=== PATIENT | female | born 1975 | race Caucasian/White ===

== ENCOUNTER 2016-07-03 19:45 | Inpatient (IN) ==
[2016-07-03] MEDS ORDERED: MORPHINE 2 MG/1 ML SYRINGE IV STA (20:20)
[2016-07-03] MEDS ORDERED: ONDANSETRON 4 MG/2 ML VIAL IV STA (20:20)
[2016-07-03] MEDS ORDERED: ONDANSETRON 4 MG/2 ML VIAL ONE (20:29)
[2016-07-03] MEDS ORDERED: MORPHINE 2 MG/1 ML SYRINGE ONE (20:30)
--- NOTE | 2016-07-03 20:55 | XRay Report ---
XR ankle 2V LT Indication: Fall with pain. Left ankle 2 views: Oblique fracture of the distal tibia is present approximately 10 cm proximal of the ankle joint. In the 2 images obtained, the fibula appears grossly intact. Impression: Oblique fracture of the distal tibia. PROCEDURE INTERPRETED AT [facility] DEPARTMENT OF RADIOLOGY Final Report Signed by: Gaurav Delgadillo M.D.
[2016-07-03] MEDS ORDERED: BISACODYL 5 MG TABLET PO PRN (20:59)
[2016-07-03] MEDS ORDERED: traZODone 50 MG TABLET PO PRN (20:59)
[2016-07-03] MEDS ORDERED: MAGNESIUM HYDROXIDE SUSP 30 ML UDCUP PO PRN (20:59)
--- NOTE | 2016-07-03 21:00 | Emergency Department Note ---
Natalee Rivera Sierra, am scribing for, and in the presence of, Zohaib Benton MD 20:25. Chetan Rivera Robert M, MD, personally performed the services described in this documentation, ascribed by Stephanie Albright in my presence, and it is both accurate and complete . Arrival - Arrival Chief Complaint: Extremity Injury Stated Complaint: broken leg ED Nursing Triage Note: C/O Left lower ext injury s/p stepping out of the vehicle, slid and heard her leg pop. Mode of Arrival: Wheelchair Limitations: No Limitations Source: Patient, Significant other Time Seen by Provider: 07/03/16 20:19 - History of Present Illness HPI Narrative: Pt is a 41 y/o female that came to the ED for further evaluation of left ankle injury s/p stepping out of a truck and sliding down an embankment that happened about an hour ago. Pt states she heard her ankle pop. She is able to move her toes. Pt states she last ate at lunch. No other complaints/pain in ED. Onset (ago): hour(s) Consistency: constant Quality: sharp Date of Last Menstrual Period: Hysterectomy Allergies/Adverse Reactions: Allergies Allergy/AdvReac Type Severity Reaction Status Date / Time meperidine [From Demerol] Allergy Severe SHORTNESS Verified 04/04/15 15:33 OF BREATH nalbuphine [From Nubain] Allergy Severe Vomiting Verified 04/04/15 15:33 Review of System - Review of System 12 point system: reviewed and no additional remarkable complaints except as stated - Review of System Cardiovascular: Absent: chest pain Gastrointestinal: Absent: abdominal pain Musculoskeletal: Present: leg pain (left ankle injury s/p fall). Absent: arm pain, back pain, neck pain Skin: Absent: rash Neurological: Absent: headache Psychiatric: Absent: anxiety Medical,Surgical,& Family Hx - Medical History Neurology: History of: Migraine - Social History Smoking Status: Never smoker Frequency of Alcohol Use: None Type of Drug Use: None Exam Vital Signs: Vital Signs Temperature 98.4 F 07/03/16 19:54 Pulse Rate 97 H 07/03/16 19:54 Respiratory Rate 18 07/03/16 19:54 O2 Sat by Pulse Oximetry 100 07/03/16 19:54 - General General appearance: alert, in no apparent distress - Head Head exam: Present: atraumatic, normocephalic - Eye Eye exam: Present: PERRL, EOMI - ENT ENT exam: Present: mucous membranes moist. Absent: mucous membranes dry - Neck Neck exam: Present: full ROM. Absent: tenderness - Chest Chest inspection: Present: symmetric chest wall rise. Absent: tenderness - Respiratory Respiratory exam: Present: normal lung sounds bilaterally. Absent: respiratory distress - Cardiovascular Cardiovascular exam: Present: regular rate, normal rhythm, normal heart sounds - Abdominal Exam Abdominal exam: Present: soft. Absent: tenderness - Extremities Exam Extremities exam: Present: full ROM, other (swelling proximal to left ankle but neurovascular intact and pulse is +2 and equal) - Back Exam Back exam: Present: full ROM. Absent: tenderness - Neurological Exam Neurological exam: Present: alert, oriented X3, CN II-XII intact. Absent: motor sensory deficit - Psychiatric Psychiatric exam: Present: normal affect, normal mood - Skin Skin exam: Present: warm, dry Course - Consultations Consultation #1: Dr. Meek requested I admit the patient he will repair in the morning. He also requests posterior splint. Time: 20:59 Results - Diagnostic Findings Procedure: X-ray: image reviewed by me (spiral fracture distal third tibia with slight displacement) Disposition Clinical Impression: Displaced spiral fracture of shaft of left tibia Case discussed with: patient, patient's family Disposition: Still a Patient Condition: Stable Time of Disposition: 20:59
[2016-07-03] MEDS ORDERED: HYDROmorphone 2 MG/1 ML VIAL IV STA (21:09)
[2016-07-03 21:10] LABS: Basophils # 0.1 10*3/uL (0.0-0.2); Basophils % 0.6 % (0.0-0.8); Eosinophils # 0.2 10*3/uL (0.0-0.87); Hematocrit 38.9 VOL% (35.7-47.0); Hemoglobin 12.7 GM/DL (12.0-16.0); Immature Granulocytes % 0.3 %; Immature Granulocytes Absolute 0.03 #; Lymphocytes # 3.4 10*3/uL (1.4-4.0); Lymphocytes % 34.1 % (21.3-54.2); Mean Corpuscular HGB Conc 32.6 GM/DL (32-36); Mean Corpuscular Hemoglobin 29 PG (27-34); Monocytes # 0.5 10*3/uL (0.11-0.8); Monocytes % 5.1 % (1.7-12.7); Neutrophils # 5.7 10*3/uL (1.4-7.4); Neutrophils % 57.9 % (38.7-73.9); Platelet Count 209 T/CUMM (130-400); Red Blood Count 4.32 MC/CUMM (3.8-5.5); Red Cell Distribution Width 13.8 % (9.3-17.3); White Blood Count 9.8 T/CUMM (4-12)
[2016-07-03] MEDS ORDERED: HYDROmorphone 2 MG/1 ML VIAL ONE ×2 (21:10→21:47)
[2016-07-03 21:23] LABS: Alanine Aminotransferase 27 U/L (13-56); Albumin 4.6 G/DL (3.4-5.0); Alkaline Phosphatase 67 U/L (45-117); Aspartate Amino Transferase 22 U/L (0-37); Bilirubin,Total < 0.39 MG/DL (0.2-1.0); Blood Urea Nitrogen 16 MG/DL (7-18); Calcium 9.3 MG/DL (8.5-10.1); Glucose 87 MG/DL (74-106); Osmolality,Calculated 289.6 MOS/KG (273-304); Sodium 146 MMOL/L (136-145); Total Protein 7.7 G/DL (6.4-8.3)
[2016-07-03] MEDS ORDERED: HYDROmorphone 2 MG/1 ML VIAL IV ONE (21:49)
[2016-07-03] MEDS ORDERED: KETOROLAC 30 MG/1 ML VIAL ONE (22:25)
[2016-07-03] MEDS ORDERED: KETOROLAC 30 MG/1 ML VIAL IV ONE (22:27)
[2016-07-03] MEDS: SODIUM CHLORIDE 0.9% 1,000 ML IV SCH (23:06)
[2016-07-04 00:38] LABS: Amorphous Crystals,Urine Occasional /HPF (Few); Apearance,Urine CLOUDY (Clear); Bacteria,Urine Moderate /HPF (Few); Bilirubin,Urine Negative (Negative); Blood, Urine Negative (Negative); Glucose,Urine (UA) Negative (Negative); Ketones,Urine Negative (Negative); Mucus,Urine Occasional /LPF (Occasional); Nitrite,Urine Negative (Negative); Protein,Urine Negative; Squamous Epithelial Cell,Urine Moderate /HPF (0-10); Urine Color Yellow (Yellow); Urine Urobilinogen < 2.0 EU/DL (0.2-1.0)
[2016-07-04] MEDS: HYDROmorphone 2 MG/1 ML VIAL IV PRN ×5 (00:42→14:51)
[2016-07-04] MEDS: ONDANSETRON 4 MG/2 ML VIAL IV PRN ×2 (01:01→08:09)
[2016-07-04] MEDS ORDERED: ACETAMINOPHEN 500 MG TABLET PO ONE (08:03)
--- NOTE | 2016-07-04 08:20 | Orthopedic History & Physical ---
Assessment and Plan (1) Displaced spiral fracture of shaft of left tibia Status: Acute Assessment and plan: Discussed the injury with the patient in detail. I recommended intramedullary nailing for stabilization of the fracture. Questions were answered her satisfaction. She desires to proceed. Risks, alternatives, and benefits to undergoing this procedure were discussed in great detail, the patient voiced understanding desire proceed. Risks discussed included, but were not limited to, bleeding, infection, damage to arteries and nerves, nonunion, malunion, need for revision surgery, as well as medical complications. We'll get her on the schedule for today. Current Visit: Yes Qualifiers: Encounter type: initial encounter Fracture type: closed Qualified Code(s) : S82.242A - Displaced spiral fracture of shaft of left tibia, initial encounter for closed fracture History of Present Illness Chief complaint: left leg fracture History of present illness: Ms. Preston is a 41 year old female who had a fall down an embankment last night. She felt a pop in the leg, she had immediate pain. She was transported here to the emergency department where radiographic workup was pertinent for a tibia fracture. She was splinted and admitted for further care. She'll complains of pain in the left leg. Home Medications Medication Instructions Recorded Confirmed Type Amitriptyline HCl 100 mg PO BEDTIME 07/03/16 07/03/16 History Gabapentin Cap/Tab [Neurontin 300 mg PO BEDTIME 07/03/16 07/03/16 History Cap/Tab] Topiramate [Topamax] 100 mg PO QAM 07/03/16 07/03/16 History Topiramate [Topamax] 200 mg PO BEDTIME 07/03/16 07/03/16 History B12/Levomefolate Calcium/B-6 1 tablet PO DAILY 07/04/16 07/04/16 History [Foltx Tablet] Estropipate [Ogen] 1.5 mg PO DAILY 07/04/16 07/04/16 History Melatonin/Pyridoxine HCl (B6) 1 tablet PO BEDTIME PRN 07/04/16 07/04/16 History [Melatonin 5 mg Tablet] Allergies Allergy/AdvReac Type Severity Reaction Status Date / Time meperidine [From Demerol] Allergy Severe SHORTNESS Verified 07/03/16 23:09 OF BREATH nalbuphine [From Nubain] Allergy Severe Vomiting Verified 07/03/16 23:09 12 point system: reviewed and no additional remarkable complaints except as stated Medical,Surgical,& Family Hx - Medical History Neurology: History of: Migraine - Surgical History Reproductive Surgeries: Surgical HX of;: Gynecologic Surgery, Hysterectomy - Social History Smoking Status: Never smoker Frequency of Alcohol Use: None Type of Drug Use: None Exam - Constitutional Vitals: Period Temp Pulse Resp BP Sys/Turner Pulse Ox Last 24 Hr 97.6 F-98.3 F 83-100 18-20 93-132/60-93 98-99 Exam: General appearance: no acute distress Head exam: normal inspection Eye exam: EOMI Neck exam: normal inspection Respiratory exam: clear to auscultation bilaterally Cardiovascular exam: regular GI/Abdominal exam: normal bowel sounds Left lower extremity: Posterior splint is in place. She can wiggle her toes. She is sensate in her toes. She has is capillary refill. She is nontender in the knee. Results - Labs CBC & BMP: 07/03/16 20:26 07/03/16 20:26 - Diagnostic Findings Procedure: X-ray: image reviewed by me (The left ankle show a displaced spiral fracture of the tibial shaft. Visualized fibula is intact)
[2016-07-04] MEDS: SODIUM CHLORIDE 0.9% 1,000 ML IV SCH ×3 (10:04→23:42)
[2016-07-04] MEDS: GABAPENTIN 400 MG CAPSULE PO SCH (10:06)
[2016-07-04] MEDS ORDERED: MIDAZOLAM 2 MG/2 ML VIAL ONE ×2 (11:37→14:11)
[2016-07-04] MEDS ORDERED: fentaNYL 100 MCG/2 ML VIAL ONE ×2 (11:38→14:11)
[2016-07-04] MEDS ORDERED: ROPIVACAINE 0.5% 30 ML VIAL ONE (11:38)
[2016-07-04] MEDS ORDERED: DEXAMETHASONE 10 MG/1 ML VIAL ONE (12:14)
[2016-07-04] MEDS ORDERED: LIDOCAINE 1% 5 ML VIAL ONE (12:14)
[2016-07-04] MEDS ORDERED: ONDANSETRON 4 MG/2 ML VIAL ONE ×2 (12:14→14:28)
[2016-07-04] MEDS ORDERED: SCOPOLAMINE 1.5 MG PATCH TRANSDERM ONE ×2 (12:14→14:11)
[2016-07-04] MEDS ORDERED: PROMETHAZINE 25 MG/1 ML VIAL ONE (12:14)
[2016-07-04] MEDS ORDERED: ROCURONIUM 100 MG/10 ML VIAL IV ONE (12:14)
[2016-07-04] MEDS ORDERED: PROPOFOL 200 MG/20 ML VIAL IV ONE (12:14)
[2016-07-04] MEDS ORDERED: ACETAMINOPHEN 325 MG TABLET PO PRN (13:38)
[2016-07-04] MEDS ORDERED: MELATONIN 3 MG TABLET PO PRN (13:40)
[2016-07-04] MEDS ORDERED: HYDROmorphone PCA 30 MG/30 ML SYRINGE IV SCH (14:00)
[2016-07-04] MEDS ORDERED: LACTATED RINGERS 1,000 ML IV ONE (14:11)
[2016-07-04] MEDS ORDERED: SEVOFLURANE 1 UNIT/15 MINUTE INH ONE (14:11)
--- NOTE | 2016-07-04 14:13 | XRay Report ---
Referring Physician: Ismael Meek Exam: XR tibia fibula LT AP and lateral views Date: July 04, 2016 at 1:39 PM Reason: Postop internal fixation of left tibia Comparison: Left ankle x-rays July 03, 2016 Findings: There has been internal fixation of the recently seen oblique fracture of the distal left tibia, utilizing an intramedullary vahid and surgical screws. Position and alignment appear satisfactory. There is also a mildly displaced, oblique fracture of the proximal diaphysis of the left fibula. Surgical skin kriss are seen near the left knee and left ankle. Impression: 1. The patient is status post internal fixation of the recently seen fracture of the distal left tibia. Position and alignment appear satisfactory. 2. Mildly displaced, oblique fracture of the proximal diaphysis of the left fibula. PROCEDURE INTERPRETED AT [facility] DEPARTMENT OF RADIOLOGY Final Report Signed by: Dr. Dex Dolan
[2016-07-04] MEDS ORDERED: HYDROmorphone PCA 30 MG/30 ML SYRINGE IV ONE (14:16)
[2016-07-04] MEDS ORDERED: HYDROmorphone 2 MG/1 ML VIAL ONE (14:28)
[2016-07-04] MEDS ORDERED: ONDANSETRON 4 MG/2 ML VIAL IV PRN (14:38)
[2016-07-04] MEDS ORDERED: LACTATED RINGERS 1,000 ML IV SCH (15:00)
--- NOTE | 2016-07-04 15:00 | XRay Report ---
XR tibia fibula LT Indication: Intramedullary nail left tibia Comparison: Left ankle x-ray dated July 03, 2016 Technique: 4 intraoperative fluoroscopic views of the left tib-fib including AP and lateral projections. Fluoroscopy time 39 seconds. Findings: Images submitted during placement of tibial intramedullary vahid with proximal and distal interlocking screws. There is an opacity within soft tissues of the infrapatellar region . This is of uncertain etiology and could be related to bone, bone graft material, or foreign body . Recommend clinical correlation. IMPRESSION: As above. PROCEDURE INTERPRETED AT [facility] DEPARTMENT OF RADIOLOGY Final Report Signed by: Dr Manuel Looney
[2016-07-04] MEDS: ACETAMINOPHEN 500 MG TABLET PO SCH (20:57)
[2016-07-04] MEDS ORDERED: TOPIRAMATE 100 MG TABLET PO SCH (21:00)
[2016-07-04] MEDS ORDERED: GABAPENTIN 300 MG CAPSULE PO SCH (21:00)
[2016-07-04] MEDS ORDERED: AMITRIPTYLINE 100 MG TABLET PO SCH (21:00)
[2016-07-05] MEDS: ACETAMINOPHEN 500 MG TABLET PO SCH ×2 (03:53→09:38)
[2016-07-05] MEDS ORDERED: ENOXAPARIN 40 MG/0.4 ML SYRINGE SUBCUT SCH (08:00)
--- NOTE | 2016-07-05 08:17 | Anesthesia ---
Anesthesia Post OP - Post Ansesthetic Evaluation Patient seen in post op: Yes Resp: within normal limits CV: within normal limits Mental: within normal limits Temp: within normal limits [id number]: within normal limits Nausea and Vomiting: within normal limits Pain: within normal limits
[2016-07-05] MEDS ORDERED: ESTROPIPATE 1.5 MG TABLET PO SCH (09:00)
[2016-07-05] MEDS ORDERED: TOPIRAMATE 100 MG TABLET PO SCH (09:00)
[2016-07-05] MEDS ORDERED: MULTIVITAMIN (BEROCCA) TABLET PO SCH (09:00)
[2016-07-05] MEDS: GABAPENTIN 400 MG CAPSULE PO SCH (09:22)
--- NOTE | 2016-07-05 13:55 | Discharge Summary ---
Hospital Course - Hospital Course Hospital Course: 41-year-old female admitted with a left tibia fracture. She underwent intramedullary nailing of the tibia without difficulty. Transferred to the floor stable condition postoperatively. She received routine antibiotics and thromboprophylaxis. She was sent by physical therapy and did well with toe- touch pain with weightbearing status and was S1 discharge home. Time of discharge her wounds clean and dry she is neurovascular intact. Diagnosis - Discharge Diagnosis (1) Displaced spiral fracture of shaft of left tibia Status: Acute Specialty Discharge - Follow Up or Referrals Discharge Plan - Discharge Data Disposition: Disch To Home/Self Care Condition at Discharge: Stable Discharge Diet: advance to your usual diet Activity: ambulate only with your walker Hygiene: may shower Weight Bearing at Discharge: toe touch Driving: not until seen by doctor Contact your physician if you experience:: fever over 101, Difficulty voiding, Redness or swelling, Nausea/Vomiting, Shortness of breath, Bleeding, pain uncontrolled by pain medications Wound / Dressing Care Instructions: Daily dressing change. Okay to shower in 48 hours - Discharge Medications New HYDROcodone/ACETAMIN 7.5-325 [[place] 7.5-325] 1 - 2 tablet PO Q4H PRN #60 tablet PRN Reason: Pain Moderate (4-7) Continue Topiramate [Topamax] 100 mg PO QAM Estropipate [Ogen] 1.5 mg PO DAILY Amitriptyline HCl 100 mg PO BEDTIME Melatonin/Pyridoxine HCl (B6) [Melatonin 5 mg Tablet] 1 tablet PO BEDTIME PRN PRN Reason: Insomnia B12/Levomefolate Calcium/B-6 [Foltx Tablet] 1 tablet PO DAILY Topiramate [Topamax] 200 mg PO BEDTIME Gabapentin Cap/Tab [Neurontin Cap/Tab] 300 mg PO BEDTIME - Follow Up or Referral Follow Up: Ismael Meek MD [Physician] - 2 Weeks - Forms/Instructions Instructions: Leg Fracture (DC) Additional Discharge Instructions: elevate and ice LLE Exam - Constitutional Vitals: Period Temp Pulse Resp BP Sys/Turner Pulse Ox Last 24 Hr 97.4 F-98.5 F 81-94 14-21 94-125/52-89 88-100 DS: Provider Date of admission: 07/03/16 21:00 Primary care physician: . No PCP Attending physician on admission: Ismael Meek MD Consults: 07/04/16 13:38 Consult to Physical Therapy [CONS] Routine Reason for Physical Therapy: Evaluate and Treat Start Therapy: Tomorrow Consult Comment: [email or web address] lle 07/04/16 13:47 Consult to Pharmacy [CONS] Routine Reason for Pharmacy Consult: Adjust Meds Renal Funct 07/05/16 08:34 Consult to Physician [CONS] Routine Comment: Consulting Provider: Carter Tariq Consulting Provider Notified: Yes When should Consulting Provider be notified: Now Person Notified: kaye kahn Date Notified: 07/05/16 Time Notified: 08:42 Discharging clinician: Ismael Meek MD
--- NOTE | 2016-07-05 16:39 | Pain Management Consult Note ---
Assessment and Plan (1) Displaced spiral fracture of shaft of left tibia Status: Acute Assessment and plan: Agree with discharged to home and will follow-up with me next week Current Visit: Yes Qualifiers: Encounter type: initial encounter Fracture type: closed Qualified Code(s) : S82.242A - Displaced spiral fracture of shaft of left tibia, initial encounter for closed fracture History of Present Illness Chief complaint: left leg pain History of present illness: Ms. Preston is a 41 year old female Patient had a left tibia fracture which was fixed with a nail placement. Patient also has a small left fibular fracture but does not need treatment at this time patient is status post surgical repair and is going home soon. Patient has been given [place] 7.5 prescription and will see me next week to get other medications as needed Home Medications Medication Instructions Recorded Confirmed Type Amitriptyline HCl 100 mg PO BEDTIME 07/03/16 07/03/16 History Gabapentin Cap/Tab [Neurontin 300 mg PO BEDTIME 07/03/16 07/03/16 History Cap/Tab] Topiramate [Topamax] 100 mg PO QAM 07/03/16 07/03/16 History Topiramate [Topamax] 200 mg PO BEDTIME 07/03/16 07/03/16 History B12/Levomefolate Calcium/B-6 1 tablet PO DAILY 07/04/16 07/04/16 History [Foltx Tablet] Estropipate [Ogen] 1.5 mg PO DAILY 07/04/16 07/04/16 History Melatonin/Pyridoxine HCl (B6) 1 tablet PO BEDTIME PRN 07/04/16 07/04/16 History [Melatonin 5 mg Tablet] HYDROcodone/ACETAMIN 7.5-325 1 - 2 tablet PO Q4H PRN #60 tablet 07/05/16 Rx [[place] 7.5-325] Allergies Allergy/AdvReac Type Severity Reaction Status Date / Time meperidine [From Demerol] Allergy Severe SHORTNESS Verified 07/03/16 23:09 OF BREATH nalbuphine [From Nubain] Allergy Severe Vomiting Verified 07/03/16 23:09 Medical,Surgical,& Family Hx - Medical History Neurology: History of: Migraine - Surgical History Reproductive Surgeries: Surgical HX of;: Gynecologic Surgery, Hysterectomy - Social History Smoking Status: Current every day smoker Frequency of Alcohol Use: None Type of Drug Use: None Marital Status: Lives With:: Spouse 12 point system: reviewed and no additional remarkable complaints except as stated - Constitutional Constitutional: Present: as per HPI - EENT Nose, mouth and throat: Present: as per HPI - Cardiovascular Cardiovascular: Present: as per HPI - Respiratory Respiratory: Present: as per HPI - Gastrointestinal Gastrointestinal: Present: as per HPI - Genitourinary Genitourinary: Present: as per HPI - Musculoskeletal Musculoskeletal: Present: abnormal gait, other (left leg pain ) - Neurological Neurological: Present: abnormal gait - Endocrine Endocrine: Present: as per HPI Exam - Constitutional Vitals: Period Temp Pulse Resp BP Sys/Turner Pulse Ox Last 24 Hr 97.4 F-99.8 F 86-109 16-21 94-124/52-74 93-100 General appearance: normal weight - Head Head exam: Present: normal inspection - Eye Eye exam: Present: EOMI Pupils: Present: SANDRA - ENT ENT exam: Present: normal exam Ear exam: Present: intact Mouth exam: Present: normal external inspection - Neck Neck exam: Present: normal inspection - Respiratory Respiratory exam: Present: clear to auscultation bilaterally - Cardiovascular Cardiovascular exam: Present: RRR - GI/Abdominal GI/Abdominal exam: Present: normal bowel sounds - Expanded Left Lower Upper Leg exam: Present: normal inspection Knee exam: Present: swelling, erythema Lower leg exam: Present: tenderness Ankle exam: Present: tenderness Foot/Toe exam: Present: tenderness Neuro vascular tendon exam: Present: no vascular compromise Gait: Present: not tested/not observed Results - Labs CBC & BMP: 07/03/16 20:26 07/03/16 20:26 Lab Results: I have reviewed the past 24 hour labs Specialty Discharge - Follow Up or Referrals Follow up with: Ismael Meek MD [Physician] - 07/20/16 12:45 pm
[2016-07-05 17:01] VITALS: BP 115/64
== END 2016-07-05 16:50 | disposition home or self-care (01) | DRG 494 ==
LOC: N.ED 19:45 → N.EDINP 20:59 → N.3E 21:15
PROVIDERS: ADMIT Orthopaedic Surgery; ATTEND Orthopaedic Surgery

== ENCOUNTER 2021-11-05 22:08 | Observation (INO) ==
[2021-11-05] MEDS ORDERED: ONDANSETRON 4 MG/2 ML VIAL IV STA (22:47)
[2021-11-05] MEDS ORDERED: PANTOPRAZOLE 40 MG VIAL IV STA (22:47)
[2021-11-05] MEDS ORDERED: SODIUM CHLORIDE 0.9% 1,000 ML IV STA (22:47)
[2021-11-05] MEDS ORDERED: HYDROmorphone 1 MG/1 ML SYRINGE IV STA (22:47)
[2021-11-05 23:05] LABS: Basophils # 0.1 10*3/uL (0.0-0.2); Basophils % 0.8 % (0.0-0.8); Eosinophils # 0.2 10*3/uL (0.0-0.87); Eosinophils % 1.8 % (0.00-10.9); Hematocrit 43.6 VOL% (35.7-47.0); Hemoglobin 14.4 GM/DL (12.0-16.0); Immature Granulocytes % 0.5 %; Immature Granulocytes Absolute 0.05 #; Lymphocytes # 2.9 10*3/uL (1.4-4.0); Lymphocytes % 28.5 % (21.3-54.2); Mean Corpuscular Volume 90.6 FL (87-102); Mean Platelet Volume 11.2 FL (9.6-12.0); Monocytes # 0.6 10*3/uL (0.11-0.8); Neutrophils % 62.4 % (38.7-73.9); Platelet Count 314 T/CUMM (130-400); Red Blood Count 4.81 MC/CUMM (3.8-5.5); Red Cell Distribution Width 13.9 % (9.3-17.3); White Blood Count 10.1 T/CUMM (4-12)
[2021-11-05 23:17] LABS: Bacteria,Urine Occasional /HPF (Few); Glucose,Urine (UA) Negative (Negative); Ketones,Urine Negative (Negative); Mucus,Urine Occasional /LPF (Occasional); Nitrite,Urine Negative (Negative); Protein,Urine Negative (Negative); Squamous Epithelial Cell,Urine Few /HPF (0-10); Urine Appearance Clear (Clear); Urine Color Yellow (Yellow); Urine Specific Gravity 1.015 (1.001-1.035); Urine pH 7.5 (4.5-8.0)
[2021-11-05 23:18] LABS: Bilirubin,Urine Negative (Negative); Blood, Urine Negative (Negative); Urine Urobilinogen 0.2 eU/dL (<2.0)
[2021-11-05 23:21] LABS: Alanine Aminotransferase 43 U/L (13-56); Albumin 4.2 G/DL (3.4-5.0); Alkaline Phosphatase 73 U/L (45-117); Amylase 62 U/L (25-115); Aspartate Amino Transferase 28 U/L (0-37); Blood Urea Nitrogen 16 MG/DL (7-18); Calcium 9.5 MG/DL (8.5-10.1); Carbon Dioxide 26 MMOL/L (21-32); Chloride 108 MMOL/L (98-107); Glucose 142 MG/DL (74-106); Osmolality,Calculated 283.3 MOS/KG (273-304); Potassium 3.7 MMOL/L (3.5-5.1); Sodium 141 MMOL/L (136-145); Total Protein 7.3 G/DL (6.4-8.2)
[2021-11-06] MEDS ORDERED: ONDANSETRON 4 MG/2 ML VIAL IV PRN (00:30)
[2021-11-06] MEDS ORDERED: ACETAMINOPHEN 325 MG TABLET PO PRN (00:30)
[2021-11-06] MEDS ORDERED: HYDROmorphone 1 MG/1 ML SYRINGE IV STA (03:04)
[2021-11-06] MEDS: DEXTROSE 5% LACTATED RINGERS 1,000 ML IV SCH ×2 (06:34→17:42)
[2021-11-06] MEDS ORDERED: TISSUE ADHESIVE 1 EACH APPLICATOR TOP ONE (07:47)
[2021-11-06] MEDS ORDERED: ROCURONIUM 50 MG/5 ML VIAL IV ONE (07:47)
[2021-11-06] MEDS ORDERED: propofoL 200 MG/20 ML VIAL IV ONE (07:47)
[2021-11-06] MEDS ORDERED: BUPIVACAINE MPF 0.25% 10 ML VIAL ONE (07:47)
[2021-11-06] MEDS ORDERED: ONDANSETRON 4 MG/2 ML VIAL ONE (07:47)
[2021-11-06] MEDS ORDERED: SUCCINYLCHOLINE 200 MG/10 ML VIAL ONE (07:47)
[2021-11-06] MEDS ORDERED: LIDOCAINE 1%/EPI INJ 20 ML VIAL ONE (07:47)
[2021-11-06] MEDS ORDERED: MIDAZOLAM 2 MG/2 ML VIAL ONE (07:47)
[2021-11-06] MEDS ORDERED: fentaNYL 100 MCG/2 ML VIAL ONE (07:47)
[2021-11-06] MEDS ORDERED: LIDOCAINE 2% 5 ML VIAL ONE (07:47)
[2021-11-06] MEDS ORDERED: DEXAMETHASONE 20 MG/5 ML VIAL ONE (07:47)
[2021-11-06] MEDS ORDERED: LACTATED RINGERS 1,000 ML IV SCH (08:30)
[2021-11-06] MEDS ORDERED: PHENYLEPHRINE 1 MG/10 ML SYRINGE IV ONE (09:00)
[2021-11-06] MEDS ORDERED: PANTOPRAZOLE 40 MG TABLET PO SCH (09:00)
[2021-11-06] MEDS ORDERED: SEVOFLURANE 1 UNIT/15 MINUTE INH ONE (09:00)
[2021-11-06] MEDS ORDERED: SUGAMMADEX 200 MG/2 ML VIAL IV ONE (09:20)
[2021-11-06 17:00] VITALS: BP 96/49
== END 2021-11-06 17:44 | disposition home or self-care (01) ==
LOC: N.3E 22:08 → N.ED 22:08 → N.3E 11-06 03:53
PROVIDERS: ADMIT Surgery; ATTEND Surgery
PROC: LAPCHOL (2021-11-06 08:25)